=== PATIENT | male | born 1995 | race Caucasian/White ===

== ENCOUNTER 2016-10-04 21:54 | Emergency (ER) | payer OTHER ==
[~2016-10-04] VITALS: Ht 180.3 cm; Wt 61.2 kg
[2016-10-04] MEDS ORDERED: IV D5/ 0.9% NACL 1,000 ML IV ONE (22:34)
[2016-10-04] MEDS ORDERED: LORAZEPAM 2 MG/1 ML VIAL IV ONE (22:45)
[2016-10-04] MEDS ORDERED: LORAZEPAM 2 MG/1 ML VIAL ONE (22:59)
--- NOTE | 2016-10-04 23:54 | NUR ---
Patient discharged to home in stable conditon. Written and verbal after care instructions given. Patient verbalizes understanding of instructions.
== END 2016-10-04 23:55 | disposition home or self-care (01) ==
LOC: ER 21:59
DX: F41.9 Anxiety disorder, unspecified (principal); R63.0 Anorexia; R20.9 Unspecified disturbances of skin sensation
CPT/HCPCS: 36415; 80053; 85025; 93005; 96361; 96374; 99285; A4663; J2060; J7042